=== PATIENT | female | born 1995 | race Caucasian/White ===

== ENCOUNTER 2018-06-15 01:52 | Emergency (ER) | payer BC ==
[~2018-06-15] VITALS: Ht 165.1 cm; Wt 61.4 kg
[2018-06-15 01:56] VITALS: Ht 165.1 cm; Wt 61.4 kg
[2018-06-15] MEDS ORDERED: AMOXICILLIN500 M1 PO (02:19)
[2018-06-15] MEDS ORDERED: CORTISPORIN OTI10 M1 EACH EAR (02:19)
[2018-06-15 03:04] VITALS: BP 118/75
== END 2018-06-15 03:03 | disposition home or self-care (01) ==
LOC: D.ER 01:52
DX: H66.92 Otitis media, unspecified, left ear (principal); H60.502 Unspecified acute noninfective otitis externa, left ear

== ENCOUNTER 2020-08-08 05:57 | Day surgery (SDC) | payer BC ==
[~2020-08-08] VITALS: Ht 165.1 cm; Wt 65.9 kg
[~2020-08-08 05:57] MED LIST: AMOXICILLIN500 M1 PO; CLARAVIS30 MG PO; CORTISPORIN OTI10 M1 EACH EAR
[2020-08-08 06:52] LABS: HCG SERUM NEGATIVE (NEGATIVE)
[2020-08-08 06:53] VITALS: BP 97/64; Ht 165.1 cm; Wt 65.9 kg
[2020-08-08 07:26] LABS: HEMATOCRIT 36.1 % (36.0-48.0); HEMOGLOBIN 12.5 g/dL (12-16); MCH 32.2 pg (26.0-34.0); MCHC 34.6 g/dL (31.0-37.0); MEAN PLATELET VOLUME 9.5 fL (7.4-10.4); RBC 3.88 10x6/uL (4.00-5.40); RDW 12.3 % (11.5-14.5); WBC 5.2 10x3/uL (4.8-10.8)
--- NOTE | 2020-08-08 09:30 | HP ---
PATIENT: MARI GONZALES MEDICAL RECORD: [id number] ACCOUNT: [id number] LOCATION:[facility] : 89 ADMISSION DATE: 08/08/20 PCP: SHADE STARR MD HISTORY AND PHYSICAL EXAMINATION PREOPERATIVE HISTORY AND PHYSICAL HISTORY: Ms. Gonzales is 24. She has had a retained left tympanostomy tube since childhood. She gets recurrent infections and drainage in the ear. She has been admitted to remove that. It was unable to remove that in the office. PAST MEDICAL HISTORY: Reviewed in the chart. She is otherwise healthy, no significant medical problems. PAST SURGICAL HISTORY: Includes bilateral myringotomy and tubes. ALLERGIES: No known drug allergies. PHYSICAL EXAMINATION: GENERAL: Healthy appearing. FACE: Normal, symmetric. EYES: Sclerae and conjunctivae are normal EARS: The right ear is normal. Left ear has a tube in anteriorly, fixed firmly in the TM. NOSE: No masses, polyps, or drainage. ORAL CAVITY AND OROPHARYNX: Normal. Tongue protrudes in midline. NECK: No masses, no adenopathy. CHEST: Clear. CARDIOVASCULAR: Regular rate and rhythm, no murmur. EXTREMITIES: Normal. IMPRESSION: Retained left tympanostomy tube. PLAN: Removal of that tube under brief anesthesia. TRANSINT:[id number] Voice Confirmation ID: [id number] DOCUMENT ID: [id number] SHADE STARR MD at 0930 CC: [id number] DICTATION DATE: 08/04/20 1525 TRANSITION MGR: 08/04/20 1543 [facility] [address] [id number]
--- NOTE | 2020-08-09 11:54 | OP ---
PATIENT NAME: MARI LEE MEDICAL RECORD: [id number] :[birth year] LOCATION:[facility] ADMISSION DATE: SURGEON: ENIO GRAVES MD DATE OF OPERATION: 08/08/2020 PREOPERATIVE DIAGNOSES: Left retained tympanostomy tube and recurrent otorrhea. POSTOPERATIVE DIAGNOSES: Left retained tympanostomy tube and recurrent otorrhea. PROCEDURE: Removal of left tympanostomy tube. SURGEON: Enio Graves MD ANESTHESIA: General by mask. COMPLICATIONS: None. DISPOSITION: Recovery, stable. DESCRIPTION OF PROCEDURE: She was brought to the operating room and placed in supine position, sedated by anesthesia. Left ear was examined under the microscope, ear was examined. Cerumen was cleaned with a curette. TM looked great. There was a tube in perfect position, looked very fresh. It was grasped and removed. It was a Silastic Paparella II tube, very large base, it has been in about 15 years. I can see why it was not possible to remove in the office, that was removed. The edges of the perforation cleaned up with a straight pick. Middle ear mucosa look normal. There was no drainage or infection. A paper patch was cut to size and placed, looked nice. She was awakened and transported to recovery in good condition. No complications. TRANSINT:[id number] Voice Confirmation ID: [id number] DOCUMENT ID: [id number] ENIO GRAVES MD at 1154 CC: [id number] DICTATION DATE: 08/08/20 0938 [employer] HAND ENGRAVER: 08/08/20 1326 [facility] 08/08/[id number] [place] [address]
== END 2020-08-08 10:35 | disposition home or self-care (01) ==
LOC: D.OPS 05:57
PROVIDERS: Anesthesiology; ATTEND Otolaryngology
DX: Z45.82 Encounter for adjustment or removal of myringotomy device (stent) (tube) (principal); H92.12 Otorrhea, left ear